=== PATIENT | male | born 1945 | race Caucasian/White ===

== ENCOUNTER 2016-09-08 21:46 | Emergency (ER) | payer MEDICARE ==
--- NOTE | 2016-09-08 22:48 | UC ---
Syncope/New Syncope HPI - HPI Summary HPI Summary: The patient comes in today for: 1. Near syncope: Onset: 3 hours ago. Palliative/provocative: He denies anything making his symptoms better or worse. Quality: near syncope Region: [place] Severity: No pain. Time: 2-3 minutes. Associated symptoms: Event: He was at home, and had fallen asleep on the cough. When he sat up, he burped "real hard" and acid and food came up into his throat, he felt imbalanced and like he was going to faint for about 2-3 minutes. AT that time, he got up and went to the bathroom. He has felt OK since. He has been burping "a lot." He has an acid taste in his mouth. He has had this problem before. Testing: He had a stress test (injection to make his heart speed up). Previous heart problems: None. CAD risk factors: HTN: (+), DM: (+), Prev dz: (-), smoker: (-), cholesterol: (?), FmHx (-). * - History Of Current Complaint Chief Complaint: UCGeneralIllness Stated Complaint: LIGHT-HEADED Time Seen by Provider: 09/08/16 21:57 Hx Obtained From: Patient - Allergies/Home Medications Allergies/Adverse Reactions: Allergies Allergy/AdvReac Type Severity Reaction Status Date / Time Tetracycline Allergy Severe Hives Verified 09/08/16 22:01 PMH/Surg Hx/FS Hx/Imm Hx Previously Healthy: No - Essential tremors Endocrine History Of: Reports: Diabetes Denies: Thyroid Disease, Hyperthyroidism, Hypothyroidism, Dyslipidemia Cardiovascular History Of: Reports: Hypertension Denies: Cardiac Disorders, Pacemaker/ICD, Myocardial Infarction, Congestive Heart Failure, Atrial Fibrillation, Deep Vein Thrombosis, Bleeding Disorders Respiratory History Of: Denies: COPD, Asthma, Pneumonia GI/ History Of: Reports: Gastroesophageal Reflux, Gall Bladder Disease - cholecystectomy Denies: Ulcer, Gastrointestinal Bleed, Kidney Stones, Diverticulitis, Renal Disease, Urosepsis Neurological History Of: Denies: TIA, CVA, Dementia, Seizures, Migraine Psychological History Of: Reports: Anxiety, Depression Denies: Bipolar Disorder, Schizophrenia, Post Traumatic Stress Disorder Cancer History Of: Denies: Lung Cancer, Colorectal Cancer, Breast Cancer, Prostate Cancer, Cervical Cancer Other History Of: Anticoagulant Therapy - 81 mg aspirin Negative For: HIV, Hepatitis B, Hepatitis C - Surgical History Surgical History: Yes Surgery Procedure, Year, and Place: CHOLECYSTECTOMY - Family History Known Family History: Positive: None, Hypertension, Other - father bladder [place] Negative: Cardiac Disease - Social History Occupation: Employed Full-time Alcohol Use: None Substance Use Type: None Smoking Status (MU): Former Smoker - Immunization History Most Recent Tetanus Shot: >10 yrs Review of Systems Constitutional: Negative Skin: Negative Eyes: Negative ENT: Negative Respiratory: Negative, Cough Cardiovascular: Negative Gastrointestinal: Negative Genitourinary: Negative All Other Systems Reviewed And Are Negative: Yes Physical Exam Triage Information Reviewed: Yes Appearance: Well-Appearing, No Pain Distress, Well-Nourished Vital Signs: Initial Vital Signs Temp 98.4 F 09/08/16 21:52 Pulse 69 09/08/16 21:52 Resp 18 09/08/16 21:52 BP 135/70 09/08/16 21:52 Pulse Ox 97 09/08/16 21:52 Vital Signs Reviewed: Yes Eyes: Positive: Conjunctiva Clear. Negative: Discharge ENT: Positive: Hearing grossly normal. Negative: Pharyngeal erythema, Nasal congestion, Nasal drainage, TM bulging, TM dull, TM red, Tonsillar swelling, Tonsillar exudate Dental: Negative: Gross Decay/Caries @, Dental Fracture @ Neck: Positive: Supple, Nontender, No Lymphadenopathy, Other: - No bruits. Negative: Nuchal Rigidity Respiratory: Positive: Chest non-tender, Lungs clear, No respiratory distress, No accessory muscle use. Negative: Crackles, Wheezing Cardiovascular: Positive: RRR, No Murmur Abdomen Description: Positive: Nontender, No Organomegaly, Soft. Negative: Distended, Guarding Musculoskeletal: Positive: Strength Intact, ROM Intact Neurological: Positive: Alert, Muscle Tone Normal Psychological: Positive: Age Appropriate Behavior, Consolable Skin: Negative: rashes, breakdown Diagnostics - Laboratory Diagnostic Studies Completed/Ordered: EKG: Rate: 68. Rhythm: Sinus. Ectopy: (-). Acute changes: (-) Syncope Course/Dx - Course Course Of Treatment: The patient was told that I am not able to diagnosed the exact cause of his near syncopal episode. He was told it may be from a benign problem (vaso-vagal) or from something more life-threatening (dysrhymia from CAD , or TIA). He was encouraged to go to the ER, but he wanted to have this addressed outpatient. He was told to follow up with his primary care provider for his difficult to control GERD. - Differential Dx/Diagnosis Differential Diagnosis/HQI/PQRI: Dysrhythmia, Vasovagal Episode, Other - TIA Provider Diagnoses: Near syncope, etiology undetermined. Discharge - Discharge Plan Condition: Stable Disposition: AGAINST MEDICAL ADVICE Patient Education Materials: Near Syncope (ED) Referrals: Tolu Hampton MD [Primary Care Provider] - As Soon As Possible (If you are not going to the ER as recommended, please call your doctors office to be seen as soon as you can for re-evaluation. If you get worse, please be seen in the ER.)
[2016-09-08 23:10] VITALS: BP 117/60
== END 2016-09-08 23:10 | disposition left against medical advice (07) ==
LOC: UCEAST 21:46
DX: E11.9 Type 2 diabetes mellitus without complications (principal); R55 Syncope and collapse; I10 Essential (primary) hypertension; K21.9 Gastro-esophageal reflux disease without esophagitis; F41.9 Anxiety disorder, unspecified; F32.9 Major depressive disorder, single episode, unspecified; Z90.49 Acquired absence of other specified parts of digestive tract; Z87.891 Personal history of nicotine dependence; Z88.3 Allergy status to other anti-infective agents
CPT/HCPCS: 93005; 99212; G0463

== ENCOUNTER → 2016-09-19 13:53 | Emergency (ER) | payer MEDICARE | END | disposition left against medical advice (07) | LOC: UCEAST 13:53 | DX: R05 Cough (principal); Z53.21 Procedure and treatment not carried out due to patient leaving prior to being seen by health care provider ==

== ENCOUNTER 2016-09-19 16:01 | Emergency (ER) | payer MEDICARE ==
[2016-09-19 16:39] VITALS: BP 122/55
--- NOTE | 2016-09-19 16:52 | UC ---
Throat Pain/Nasal Mickey HPI - HPI Summary HPI Summary: complaint of cough and nasal congestion for over a week productive cough with yellowish green sputum headache and increasing sinus pressure bilateral ear pain denies fever and chills cough is worse at night not taking any medications for symptoms - History of Current Complaint Chief Complaint: UCRespiratory Stated Complaint: COUGH Time Seen by Provider: 09/19/16 16:46 Hx Obtained From: Patient - Allergies/Home Medications Allergies/Adverse Reactions: Allergies Allergy/AdvReac Type Severity Reaction Status Date / Time Tetracycline Allergy Severe Hives Verified 09/19/16 16:39 Home Medications: Home Medications Lisinopril [Lisinopril 2.5 MG-] 2.5 mg PO DAILY 09/19/16 [History Confirmed ] buPROPion SR TAB* [Wellbutrin SR TAB*] 100 mg PO 09/19/16 [History] PMH/Surg Hx/FS Hx/Imm Hx Previously Healthy: Yes Endocrine History Of: Reports: Diabetes Denies: Thyroid Disease, Hyperthyroidism, Hypothyroidism, Dyslipidemia Cardiovascular History Of: Reports: Hypertension Denies: Cardiac Disorders, Pacemaker/ICD, Myocardial Infarction, Congestive Heart Failure, Atrial Fibrillation, Deep Vein Thrombosis, Bleeding Disorders Respiratory History Of: Denies: COPD, Asthma, Pneumonia GI/ History Of: Reports: Gastroesophageal Reflux, Gall Bladder Disease - cholecystectomy Denies: Ulcer, Gastrointestinal Bleed, Kidney Stones, Diverticulitis, Renal Disease, Urosepsis Neurological History Of: Denies: TIA, CVA, Dementia, Seizures, Migraine Psychological History Of: Reports: Anxiety, Depression Denies: Bipolar Disorder, Schizophrenia, Post Traumatic Stress Disorder Cancer History Of: Denies: Lung Cancer, Colorectal Cancer, Breast Cancer, Prostate Cancer, Cervical Cancer Other History Of: Anticoagulant Therapy - 81 mg aspirin Negative For: HIV, Hepatitis B, Hepatitis C - Surgical History Surgical History: Yes Surgery Procedure, Year, and Place: CHOLECYSTECTOMY - Family History Known Family History: Positive: None, Hypertension, Other - father bladder [place] Negative: Cardiac Disease - Social History Occupation: Disabled Lives: With Family Alcohol Use: None Substance Use Type: None Smoking Status (MU): Former Smoker - Immunization History Most Recent Tetanus Shot: >10 yrs Review of Systems Constitutional: Negative Skin: Negative Eyes: Negative ENT: Nasal Discharge Respiratory: Cough Cardiovascular: Negative Gastrointestinal: Negative Genitourinary: Negative Motor: Negative Neurovascular: Negative Musculoskeletal: Negative Neurological: Negative Psychological: Negative All Other Systems Reviewed And Are Negative: Yes Physical Exam Triage Information Reviewed: Yes Appearance: No Pain Distress, Well-Nourished Vital Signs: Initial Vital Signs Temp 98.5 F 09/19/16 16:35 Pulse 65 09/19/16 16:35 Resp 20 09/19/16 16:35 BP 122/55 09/19/16 16:35 Pulse Ox 97 09/19/16 16:35 Vital Signs Reviewed: Yes Eyes: Positive: Conjunctiva Clear ENT: Positive: Pharyngeal erythema, Nasal congestion, Nasal drainage, TM bulging , Other: - frontal and maxillary sinus tenderness. Negative: TM red Neck: Positive: No Lymphadenopathy Respiratory: Positive: Lungs clear, Normal breath sounds, No respiratory distress, No accessory muscle use Cardiovascular: Positive: RRR, No Murmur, Pulses Normal Abdomen Description: Positive: Nontender, Soft Bowel Sounds: Positive: Present Musculoskeletal: Positive: No Edema Neurological: Positive: Alert Psychological Exam: Normal Skin Exam: Normal Throat Pain/Nasal Course/Dx - Differential Dx/Diagnosis Differential Diagnosis/HQI/PQRI: Sinusitis, Tonsillitis, URI Provider Diagnoses: sinusitis/ bronchitis Discharge - Discharge Plan Condition: Stable Disposition: HOME Prescriptions: Amoxicillin/Clavulanate TAB* [Augmentin TAB 875*] 875 mg PO BID #20 tab Benzonatate CAP* [Tessalon 100 MG CAP*] 100 mg PO TID #30 cap Patient Education Materials: Sinusitis (ED), Acute Bronchitis (ED) Forms: *Work Release Referrals: Tolu Hampton MD [Primary Care Provider] - Additional Instructions: Please take antibiotic as directed Increase fluids and rest Take acetaminophen or ibuprofen for fever or pain Please review your discharge instructions. If your symptoms do not improve please call your primary care provider or return to urgent care
== END 2016-09-19 17:02 | disposition home or self-care (01) ==
LOC: UCEAST 16:01
DX: J32.9 Chronic sinusitis, unspecified (principal); J40 Bronchitis, not specified as acute or chronic; Z88.1 Allergy status to other antibiotic agents; E11.9 Type 2 diabetes mellitus without complications; I10 Essential (primary) hypertension; K21.9 Gastro-esophageal reflux disease without esophagitis; F41.8 Other specified anxiety disorders; Z79.82 Long term (current) use of aspirin; Z90.49 Acquired absence of other specified parts of digestive tract; Z87.891 Personal history of nicotine dependence
CPT/HCPCS: 99212; G0463

== ENCOUNTER 2016-11-30 14:12 | Emergency (ER) | payer MEDICARE ==
[2016-11-30 14:26] VITALS: BP 133/72
--- NOTE | 2016-11-30 15:25 | UC ---
Back Pain HPI - HPI Summary HPI Summary: Mid-low back pain since standing up from couch 11/29/16. 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 Denies fever, weakness, sensory disturbance, weight loss, or trouble with bowel or bladder. Denies hx of AAA. - History of Current Complaint Chief Complaint: UCBackPain Stated Complaint: BACK PAIN Time Seen by Provider: 11/30/16 15:03 Hx Obtained From: Patient Onset/Duration: Sudden Onset Timing: Constant Severity Initially: Moderate Severity Currently: Moderate Character: Dull, Aching, Spasmodic, Stiffness Aggravating: Movement, Bending, Walking Alleviating: Rest, Position Associated Signs And Symptoms: Negative: Redness, Bruising, Fever, Weakness, Numbness, Flank Pain, Bladder Incontinence, Bowel Incontinence, Weight Loss - Risk Factors AAA Risk Factors: Smoking, Hypertension TAD Risk Factors: Negative Cauda Equina Risk Factors: Negative - Allergies/Home Medications Allergies/Adverse Reactions: Allergies Allergy/AdvReac Type Severity Reaction Status Date / Time Tetracycline Allergy Severe Hives Verified 09/19/16 16:39 PMH/Surg Hx/FS Hx/Imm Hx Endocrine History: Diabetes Cardiovascular History: Hypertension Psychological History: Anxiety, Depression Other History Of: Anticoagulant Therapy - 81 mg aspirin Negative For: HIV, Hepatitis B, Hepatitis C - Surgical History Surgical History: Yes Surgery Procedure, Year, and Place: CHOLECYSTECTOMY - Family History Known Family History: Positive: None, Hypertension, Other - father bladder [place] Negative: Cardiac Disease - Social History Occupation: Employed Full-time Alcohol Use: None Substance Use Type: None Smoking Status (MU): Former Smoker - Immunization History Most Recent Tetanus Shot: >10 yrs Review of Systems Constitutional: Negative Skin: Negative Eyes: Negative ENT: Negative Respiratory: Negative Cardiovascular: Negative Gastrointestinal: Negative Genitourinary: Negative Motor: Negative Neurovascular: Negative Musculoskeletal: Myalgia - low back Neurological: Negative Psychological: Negative All Other Systems Reviewed And Are Negative: Yes Physical Exam Triage Information Reviewed: Yes Appearance: Well-Appearing, Well-Nourished, Pain Distress - with movement Vital Signs: Initial Vital Signs Temp 97.3 F 11/30/16 14:22 Pulse 67 11/30/16 14:22 Resp 17 11/30/16 14:22 BP 133/72 11/30/16 14:22 Pulse Ox 96 11/30/16 14:22 Vital Signs Reviewed: Yes Eye Exam: Normal Eyes: Positive: Conjunctiva Clear ENT Exam: Normal ENT: Positive: Normal ENT inspection, Hearing grossly normal, Pharynx normal, TMs normal Dental Exam: Other - missing many teeth Neck exam: Normal Respiratory Exam: Normal Respiratory: Positive: Chest non-tender, Lungs clear, Normal breath sounds, No respiratory distress, No accessory muscle use Cardiovascular: Positive: RRR, No Murmur Abdomen Description: Positive: Nontender, No Organomegaly. Negative: CVA Tenderness (R), CVA Tenderness (L) Musculoskeletal: Positive: Strength Intact, ROM Intact, ROM Limited @ - back only Neurological Exam: Normal, Other - DTRs 2+ BLE Neurological: Positive: Alert Psychological Exam: Normal Skin Exam: Normal Back Pain Course/Dx - Differential Dx/Diagnosis Provider Diagnoses: Low back strain Discharge - Discharge Plan Condition: Stable Disposition: HOME Prescriptions: Cyclobenzaprine HCl [Flexeril 5 mg (NF)] 5 mg PO TID PRN #10 tab PRN Reason: Pain Naproxen Sodium [Naproxen Sodium 500 MG TAB] 500 mg PO BID PRN #20 tab PRN Reason: Pain Patient Education Materials: Low Back Strain (ED) Forms: *Work Release Referrals: Tolu Hampton MD [Primary Care Provider] - 1 Week Additional Instructions: Go to the emergency department if you have fever, weakness in the legs, incontinence, or severe pain.
== END 2016-11-30 15:20 | disposition home or self-care (01) ==
LOC: UCEAST 14:12
DX: S39.012A Strain of muscle, fascia and tendon of lower back, initial encounter (principal); X58.XXXA Exposure to other specified factors, initial encounter; Z87.891 Personal history of nicotine dependence
CPT/HCPCS: 99212; G0463

== ENCOUNTER 2017-02-02 10:38 | Day surgery (SDC) | payer MEDICARE ==
[~2017-02-02 10:38] MED LIST: Acetaminophen TAB* 325 MG PO PRN; Buffered Lidocaine 0.9% SYRIN* 5 ML/SYR SYRINGE INTRADERM ONE
[2017-02-02] MEDS ORDERED: Proparacaine 0.5% OPHTH.SOL* 15 ML BTL ONE (10:54)
[2017-02-02] MEDS ORDERED: Neomycin/Polymy/Dex OPTH.SUSP* MAXITROL 0.1% 5 ML ONE (10:54)
[2017-02-02] MEDS ORDERED: Cyclopentolate 1% OPTH.SOL* 2 ML BTL ONE (10:54)
[2017-02-02] MEDS ORDERED: Flurbiprofen 0.03% OPTH.SOL* 2.5 ML BTL ONE (10:54)
[2017-02-02] MEDS ORDERED: Povidone Iodine 5% OPTH* 30 ML BTL ONE (10:54)
[2017-02-02] MEDS ORDERED: Buffered Lidocaine 0.9% SYRIN* 5 ML/SYR SYRINGE ONE (10:54)
[2017-02-02] MEDS ORDERED: Phenylephrine 2.5% OPTH.SOL* 2 ML BTL ONE (10:54)
[2017-02-02] MEDS ORDERED: acetaZOLAMIDE TAB* 250 MG ONE (10:54)
[2017-02-02] MEDS ORDERED: Lidocaine 2% EPI 1:200000 MPF* 20 ML VIAL ONE (10:54)
[2017-02-02] MEDS ORDERED: Lidocaine 1% MPF* 2 ML VIAL ONE (10:54)
[2017-02-02] MEDS ORDERED: fentaNYL* 50 MCG/ML 2 ML VIAL (100 MCG VIAL) ONE (12:25)
[2017-02-02] MEDS ORDERED: Midazolam* 1 MG/ML 2 ML VIAL (2 MG) ONE (12:26)
[2017-02-02 13:20] VITALS: BP 128/72
--- NOTE | 2017-02-02 14:38 | OP ---
DATE OF OPERATION: 02/02/2017 - [facility] DATE OF : 1945. SURGEON: Rodney Vargas M.D. PREOPERATIVE DIAGNOSIS: Cataract right eye. POSTOPERATIVE DIAGNOSIS: Cataract right eye. OPERATIVE PROCEDURE: Phacoemulsification right eye with IOL. DESCRIPTION OF PROCEDURE: The patient was brought to the operating room after being given 1/2% Alcaine with epinephrine drops in the preoperative area. The eye was prepped and draped in the usual sterile fashion. Sterile drape and eyelid speculum were placed. Again, topical 1/2% Alcaine with epinephrine was given. A paracentesis incision was made at the 9 o'clock position with the No.75 blade. Clear cornea incision 2.2 x 2.2-mm was created at the 12 o'clock position starting at the anterior limbus using the 2.2-mm keratome. The anterior chamber was irrigated with 0.4 mL of 1% non-preservative intracameral lidocaine and filled with DisCoVisc. A capsulorrhexis was completed using the cystotome and the Utrata forceps. Hydrodissection was performed with balanced salt solution. The lens nucleus was removed with the Phacoemulsification handpiece without incident. Cortex was removed with the irrigation-aspiration handpiece. The capsular bag was re-inflated using DisCoVisc and an [id number] implant was inserted with the shooter. The irrigation-aspiration handpiece was used to remove all residual DisCoVisc. The eye was refilled with balanced salt solution and the wound checked and found to be watertight. Topical Maxitrol drops were given. [id number]/[facility] #: [id number] [facility]ITALE[facility]ie
== END 2017-02-02 13:34 | disposition home or self-care (01) ==
LOC: OREAST 10:38
PROVIDERS: ATTEND Specialist
DX: H26.9 Unspecified cataract (principal); Z79.82 Long term (current) use of aspirin; Z88.2 Allergy status to sulfonamides; Z88.8 Allergy status to other drugs, medicaments and biological substances; E11.9 Type 2 diabetes mellitus without complications; K21.9 Gastro-esophageal reflux disease without esophagitis; I10 Essential (primary) hypertension; E78.00 Pure hypercholesterolemia, unspecified
CPT/HCPCS: A9270-GY; J2250; J3010; V2632

== ENCOUNTER 2017-04-11 16:36 | Emergency (ER) | payer MEDICARE ==
[2017-04-11 16:50] VITALS: BP 148/77
[2017-04-11] MEDS ORDERED: Tetan/Diph/Pertus SYR(Tdap)* 0.5 ML SYR(BOOSTRIX) use SYR IM ONE (16:59)
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
== END 2017-04-11 17:40 | disposition home or self-care (01) ==
LOC: UCEAST 16:36
DX: S61.231A Puncture wound without foreign body of left index finger without damage to nail, initial encounter (principal); L03.012 Cellulitis of left finger; W26.0XXA Contact with knife, initial encounter; Y93.89 Activity, other specified; Y92.9 Unspecified place or not applicable; Y99.9 Unspecified external cause status; Z72.0 Tobacco use
CPT/HCPCS: 73140; 90471; 90715; 99212; G0463

== ENCOUNTER 2017-05-02 18:37 | Emergency (ER) | payer MEDICARE ==
[2017-05-02 19:37] VITALS: BP 145/59
--- NOTE | 2017-05-02 20:26 | RAD ---
HISTORY: Right hand pain, trauma COMPARISONS: None VIEWS: 2, Frontal and lateral views of the right hand FINDINGS: BONE DENSITY: There is diffuse osteopenia. BONES: There is no displaced fracture. JOINTS: There is advanced osteoarthritis of the first CMC joint and of the interphalangeal joints. ALIGNMENT: There is no dislocation. SOFT TISSUES: Unremarkable. OTHER FINDINGS: None. IMPRESSION: OSTEOARTHRITIS. NO ACUTE OSSEOUS INJURY. IF SYMPTOMS PERSIST, RECOMMEND REPEAT IMAGING.
--- NOTE | 2017-05-02 20:27 | RAD ---
HISTORY: Pain, trauma, right wrist COMPARISONS: None VIEWS: 3, Frontal, lateral, and oblique views of the right wrist FINDINGS: BONE DENSITY: There is diffuse osteopenia. BONES: There is a small bone fragment along the dorsal aspect of the proximal carpal row. JOINTS: There is osteoarthritis of the first CMC joint ALIGNMENT: There is no dislocation. SOFT TISSUES: Unremarkable. OTHER FINDINGS: None. IMPRESSION: 1. SMALL BONE FRAGMENT ALONG THE DORSAL ASPECT OF THE PROXIMAL CARPAL ROW SUGGESTIVE OF AN AVULSION INJURY, LIKELY FROM THE TRIQUETRUM. 2. OSTEOARTHRITIS.
--- NOTE | 2017-05-02 21:01 | UC ---
Franklin Campbell Gabriel, scribed for Danie Dillon MD on 05/02/17 at 2034 . Upper Extremity HPI - History of Current Complaint Chief Complaint: UCUpperExtremity Stated Complaint: FALL INJURY - HAND Time Seen by Provider: 05/02/17 20:20 Hx Obtained From: Patient Onset/Duration: Still Present Severity Initially: Moderate Severity Currently: Moderate Pain Intensity: 8 Pain Scale Used: 0-10 Numeric Aggravating Factor(s): Movement - Allergies/Home Medications Allergies/Adverse Reactions: Allergies Allergy/AdvReac Type Severity Reaction Status Date / Time Tetracycline Allergy Severe Hives Verified 05/02/17 19:37 PMH/Surg Hx/FS Hx/Imm Hx Previously Healthy: No Endocrine History: Diabetes Cardiovascular History: Hypertension Other History Of: Anticoagulant Therapy - 81 mg aspirin Negative For: HIV, Hepatitis B, Hepatitis C - Surgical History Surgical History: Yes Surgery Procedure, Year, and Place: LAPARSCOPIC CHOLECYSTECTOMY 2011 [facility] [place] - Family History Known Family History: Positive: Hypertension, Other - father bladder [place] Negative: Cardiac Disease - Social History Occupation: Employed Full-time Lives: With Family Alcohol Use: Rare Alcohol Amount: BEER 5 PER YR Substance Use Type: None Smoking Status (MU): Former Smoker When Did the Patient Quit Smoking/Using Tobacco: - Immunization History Most Recent Tetanus Shot: >10 yrs Review of Systems Constitutional: Negative - fever Musculoskeletal: Other: - right wrist pain All Other Systems Reviewed And Are Negative: Yes Physical Exam Triage Information Reviewed: Yes Appearance: Well-Appearing, No Pain Distress Vital Signs: Initial Vital Signs Temp 97.8 F 05/02/17 19:33 Pulse 77 05/02/17 19:33 Resp 16 05/02/17 19:33 BP 145/59 05/02/17 19:33 Pulse Ox 99 05/02/17 19:33 Vital Signs Reviewed: Yes Eyes: Positive: Conjunctiva Clear ENT: Positive: Normal ENT inspection Neck: Positive: Supple, Nontender Respiratory: Positive: Chest non-tender, Lungs clear, Normal breath sounds Cardiovascular: Positive: RRR, Pulses Normal Abdomen Description: Positive: Nontender Musculoskeletal: Positive: Other: - tender right medial wrist over carpal bones with STS. Neuro vascular intact. no break in skin. Neurological: Positive: Alert Skin Exam: Normal Procedures - Splinting Location: right wrist forearm Hand-Made Type: orthoglass Splint: volar Pre-Proc Neuro Vasc Exam: normal Post-Proc Neuro Vasc Exam: normal Diagnostics - Radiology hand Xray Radiology Interpretation Completed By: Radiologist - OSTEOARTHRITIS. NO ACUTE OSSEOUS INJURY. IF SYMPTOMS PERSIST, RECOMMEND REPEAT IMAGING. ED physician has reviewed this radiology. wrist Xray Radiology Interpretation Completed By: Radiologist - 1. SMALL BONE FRAGMENT ALONG THE DORSAL ASPECT OF THE PROXIMAL CARPAL ROW SUGGESTIVE OF AN AVULSION INJURY, LIKELY FROM THE TRIQUETRUM. 2. OSTEOARTHRITIS. ED physician has reviewed this radiology. Upper Extremity Course/Dx - Course Course Of Treatment: 71 yr old with triquatral fracture. volar splint applied by md. FU ortho. - Differential Dx/Diagnosis Provider Diagnoses: triquatrial fracture of right wrist avulsion fracture. hypertension Discharge - Discharge Plan Condition: Good Disposition: HOME Patient Education Materials: Wrist Fracture in Adults (ED), Hypertension (ED) Referrals: No Primary Care Phys,NOPCP [Primary Care Provider] - Tyrone Gray MD [Medical Doctor] - The documentation as recorded by the Franklin montes Gabriel accurately reflects the service I personally performed and the decisions made by Santana alston Walter, MD.
== END 2017-05-02 21:05 | disposition home or self-care (01) ==
LOC: UCEAST 18:37
DX: S62.111A Displaced fracture of triquetrum [cuneiform] bone, right wrist, initial encounter for closed fracture (principal); I10 Essential (primary) hypertension; M19.031 Primary osteoarthritis, right wrist; M19.041 Primary osteoarthritis, right hand; W19.XXXA Unspecified fall, initial encounter; Y92.9 Unspecified place or not applicable; E11.9 Type 2 diabetes mellitus without complications; Z79.82 Long term (current) use of aspirin; Z88.1 Allergy status to other antibiotic agents; Z87.891 Personal history of nicotine dependence
CPT/HCPCS: 25600; 99212; 99213; G0463

== ENCOUNTER 2017-08-21 21:59 | Emergency (ER) | payer MEDICARE ==
[2017-08-21 22:58] LABS: Hematocrit 42 % (42-52); Hemoglobin 14.6 g/dl (14.0-18.0); Mean Corpuscular HGB Conc 35 g/dl (31-36); Mean Corpuscular Hemoglobin 30 pg (27-31); Mean Corpuscular Volume 86 fL (80-94); Mean Platelet Volume 6.4 um3 (7.4-10.4); Platelet Count 321 10^3/ul (150-450); Red Blood Count 4.89 10^6/ul (4.0-5.4); Red Cell Distribution Width 14 % (10.5-15); White Blood Count 11.3 10^3/ul (3.5-10.8)
[2017-08-21 23:05] LABS: ABS Basophils 0.1 10^3/ul (0-0.2); ABS Eosinophils 0.2 10^3/ul (0-0.6); ABS Lymphocytes 1.9 10^3/ul (1.0-4.8); ABS Monocytes 1.6 10^3/ul (0-0.8); ABS Neutrophils 7.5 10^3/ul (1.5-7.7); ABS Nucleated RBC 0 10^3/ul; Eosinophil % 1.6 % (0-6); Lymphocyte % 17.1 % (25-47); Nucleated Red Blood Cells % 0.1
[2017-08-21 23:08] LABS: INR 0.89 (0.77-1.02)
[2017-08-21 23:13] LABS: EGFR Non-African American 101.4 (>60)
[2017-08-22 00:03] VITALS: BP 134/64
--- NOTE | 2017-08-22 00:15 | ED ---
Dalton Campbell Julia, scribed for Apolinar Davis MD on 08/21/17 at 2216 . Upper Extremity Pain - HPI Summary HPI Summary: This patient is a 71 year old M presenting to [facility] with a chief complaint of intermittent left shoulder pain lasting 15-20 minutes described as squeezing since 17:00. The patient rates the pain 5/10 in severity. Patient denies neck pain and SOB. Pt denies previous similar symptoms. Pain is unchanged by shoulder movement. Pt has hx of CAD. Pt takes baby ASA daily. - History of Current Complaint Chief Complaint: EDShoulderClavicleInj Stated Complaint: LEFT SHOULDER PAIN Time Seen by Provider: 08/21/17 22:08 Hx Obtained From: Patient Mechanism Of Injury: Unknown Onset/Duration: Started Hours Ago Timing: Intermittent, Lasting Minutes Pain Location: Shoulder - left Character: Unable to Describe - "squeezing" Aggravating Factor(s): Nothing Alleviating Factor(s): Nothing Associated Signs & Symptoms: Negative: SOB, Other - neck pain - Allergies/Home Medications Allergies/Adverse Reactions: Allergies Allergy/AdvReac Type Severity Reaction Status Date / Time tetracycline Allergy Hives Verified 08/21/17 22:06 PMH/Surg Hx/FS Hx/Imm Hx Endocrine/Hematology History: Reports: Hx Anticoagulant Therapy - 81 mg aspirin , Hx Diabetes - TYPE II, Hx Anemia - LOW DOSE ASPIRIN Denies: Hx Thyroid Disease Cardiovascular History: Reports: Hx Angina, Hx Coronary Artery Disease - ?, Hx Hypertension Denies: Hx Aneurysm, Hx Auto Implanted Cardiovert Defib, Hx Cardiac Arrest, Hx Congestive Heart Failure, Hx Deep Vein Thrombosis, Hx Hypercholesterolemia, Hx Myocardial Infarction, Hx Pacemaker/ICD, Hx Rheumatic Fever, Hx Syncope Respiratory History: Reports: Hx Sleep Apnea - does not use CPAP/ refused Denies: Hx Asthma, Hx Chronic Bronchitis, Hx Chronic Obstructive Pulmonary Disease (COPD), Hx Lung Cancer, Hx Pneumonia, Hx Seasonal Allergies GI History: Reports: Hx Gall Bladder Disease - cholecystectomy, Hx Gastroesophageal Reflux Disease - ON MEDS PT STATES CONT TO HAVE SEVERE EPISODES , Hx Hiatal Hernia, Other GI Disorders - DIARRHEA OFTEN Denies: Hx Crohn's Disease, Hx Diverticulosis, Hx Gastrointestinal Bleed, Hx Irritable Bowel, Hx Ulcer, Hx Urosepsis History: Denies: Hx Kidney Infection, Hx Kidney Stones, Hx Renal Disease Musculoskeletal History: Reports: Hx Arthritis - BILAT KNEES AND SHOULDERS Denies: Hx Back Problems, Hx Gout, Hx Orthopedic Injury, Hx Osteoporosis, Hx Tendonitis Sensory History: Reports: Hx Cataracts - BILAT, Hx Contacts or Glasses - GLASSES Denies: Hx Hearing Aid Opthamlomology History: Reports: Hx Cataracts - BILAT, Hx Contacts or Glasses - GLASSES Neurological History: Reports: Other Neuro Impairments/Disorders - CURRENT COMPLAINT IS OF NUMBNESS ON RIGHT SIDE OF HEAD Denies: Hx Dementia, Hx Headaches, Hx Migraine, Hx Nerve Disease, Hx Seizures , Hx Spinal Cord Injury, Hx Transient Ischemic Attacks (TIA) Psychiatric History: Reports: Hx Anxiety, Hx Depression, Hx Panic Disorder Denies: Hx Eating Disorder, Hx Inpatient Treatment, Hx Schizophrenia, Hx Bipolar Disorder, Hx Suicide Attempt, Hx of Violent Episodes Against Others, Hx Substance Abuse - Surgical History Surgery Procedure, Year, and Place: LAPARSCOPIC CHOLECYSTECTOMY 2012 [facility] Hx Anesthesia Reactions: No Infectious Disease History: No Infectious Disease History: Denies: Hx Clostridium Difficile, Hx Hepatitis, Hx Human Immunodeficiency Virus (HIV), Hx of Known/Suspected MRSA, Hx Shingles, Hx Tuberculosis, Hx Known/ Suspected VRE, Hx Known/Suspected VRSA, History Other Infectious Disease, Traveled Outside the [place] in Last 30 Days - Family History Known Family History: Positive: Hypertension, Other - father bladder [place] Negative: Cardiac Disease - Social History Alcohol Use: Rare Alcohol Amount: BEER 5 PER YR Substance Use Type: Reports: None Hx Tobacco Use: Yes - FOR 30 YRS Smoking Status (MU): Former Smoker Review of Systems Negative: Shortness Of Breath Musculoskeletal: Negative - neck pain Positive: Myalgia - shoulder pain All Other Systems Reviewed And Are Negative: Yes Physical Exam - Summary Physical Exam Summary: VITAL SIGNS: Reviewed. GENERAL: Patient is a well-developed and nourished male who is lying comfortable in the stretcher. Patient is not in any acute respiratory distress. HEAD AND FACE: No signs of trauma. No ecchymosis, hematomas or skull depressions. No sinus tenderness. EYES: PERRLA, EOMI x 2, No injected conjunctiva, no nystagmus. EARS: Hearing grossly intact. Ear canals and tympanic membranes are within normal limits. MOUTH: Oropharynx within normal limits. NECK: Supple, trachea is midline, no adenopathy, no JVD, no carotid bruit, no c- spine tenderness, neck with full ROM. CHEST: Symmetric, no tenderness at palpation LUNGS: Clear to auscultation bilaterally. No wheezing or crackles. CVS: Regular rate and rhythm, S1 and S2 present, no murmurs or gallops appreciated. ABDOMEN: Soft, non-tender. No signs of distention. No rebound no guarding, and no masses palpated. Bowel sounds are normal. EXTREMITIES: FROM in all major joints, no edema, no cyanosis or clubbing. NEURO: Alert and oriented x 3. No acute neurological deficits. Speech is normal and follows commands. SKIN: Dry and warm Triage Information Reviewed: Yes Vital Signs On Initial Exam: Initial Vitals Temp Pulse Resp BP Pulse Ox 98 F 77 20 151/74 97 08/21/17 22:02 08/21/17 22:02 08/21/17 22:02 08/21/17 22:02 08/21/17 22:02 Vital Signs Reviewed: Yes Diagnostics - Vital Signs Vital Signs Temp Pulse Resp BP Pulse Ox 08/21/17 22:02 98 F 77 20 151/74 97 - Laboratory Result Diagrams: 08/21/17 22:50 08/21/17 22:50 Lab Statement: Any lab studies that have been ordered have been reviewed, and results considered in the medical decision making process. - Radiology CXR Radiology Interpretation Completed By: ED Physician - No acute processes. Awaiting offical report. - EKG 2223 Cardiac Rate: NL - at 68 BPM EKG Rhythm: Sinus Rhythm ST Segment: Non-Specific - in inferior leads Re-Evaluation - Re-Evaluation 1 Re-Evaluation Time: 23:50 Change: Improved - Pt feels better. Pt informed of results. Pt instructed to follow up with PCP and have a stress test VIMAL. Course/Dx - Course Course Of Treatment: Pt presents with intermittent left shoulder pain lasting 15 -20 minutes described as squeezing since 17:00. Pain is unchanged by shoulder movement. And EKG and CXR are of no acute concern. Lab results are unremarkable. Pt is feeling better while in ED. A stress test w was highly recommended on an outpatient basis as soon as possible. Pt will be discharged. - Diagnoses Provider Diagnoses: Left shoulder pain Discharge - Sign-Out/Discharge Documenting (check all that apply): Discharge - Discharge Plan Condition: Stable Disposition: HOME Patient Education Materials: Shoulder Pain (ED) Referrals: [facility] [place] PHYSICIAN REFERRAL [Outside] - As Soon As Possible (Follow up with a primary care physician as soon as possible.) Additional Instructions: Schedule a stress test as soon as possible. RETURN TO THE EMERGENCY DEPARTMENT FOR CHANGING OR WORSENING SYMPTOMS. The documentation as recorded by the Dalton montes Julia accurately reflects the service I personally performed and the decisions made by me, Apolinar Davis MD.
--- NOTE | 2017-08-22 07:40 | RAD ---
INDICATION: Chest pain. COMPARISON: Comparison is made with a prior study from June 21, 2015. TECHNIQUE: A portable view of the chest was obtained. FINDINGS: Cardiac and mediastinal contours appear to be within normal limits. The lungs are clear. No pleural effusion is seen. IMPRESSION: NO EVIDENCE FOR ACUTE DISEASE.
== END 2017-08-22 00:01 | disposition home or self-care (01) ==
LOC: ED 21:59
DX: M25.512 Pain in left shoulder (principal); E11.9 Type 2 diabetes mellitus without complications; Z79.84 Long term (current) use of oral hypoglycemic drugs; Z79.82 Long term (current) use of aspirin; I25.119 Atherosclerotic heart disease of native coronary artery with unspecified angina pectoris; K21.9 Gastro-esophageal reflux disease without esophagitis; K44.9 Diaphragmatic hernia without obstruction or gangrene; F41.0 Panic disorder [episodic paroxysmal anxiety]; F32.9 Major depressive disorder, single episode, unspecified; Z88.1 Allergy status to other antibiotic agents; Z87.891 Personal history of nicotine dependence
CPT/HCPCS: 36415; 71045; 80053; 82550; 83735; 83880; 84484; 85025; 85610; 85730; 93005; 99282

== ENCOUNTER 2018-01-11 13:54 | Emergency (ER) | payer MEDICARE ==
--- NOTE | 2018-01-11 13:58 | UC ---
Cardiac HPI - HPI Summary HPI Summary: A 72 y/o M presents to [facility] [place] with c/o lower sternal CP onset this AM approx 30 minutes after breakfast. Pain is described as burning and stabbing and rated an 7/8 out of 10. Pain has reduced to 2/3 out of 10 at bedside. Associated: nausea. Denies SOB, diaphoresis, palpitations, dizziness. He had a bowl of cereal for breakfast. He states this pain feels worse than his typical GERD episodes. PMHx: GERD, HTN, DM, no prev MS. - History of Current Complaint Stated Complaint: CHEST PAIN Time Seen by Provider: 01/11/18 13:56 Hx Obtained From: Patient Onset/Duration: Lasting Hours, Still Present Initial Severity: Severe Current Severity: Moderate Pain Intensity: 8 - out of 10 at its worst Chest Pain Location: Lower Sternal Character: Burning, Sharp/Stabbing Associated Signs & Symptoms: Positive: Nausea/Vomiting. Negative: Dizziness, SOB, Diaphoresis, Palpitations - Allergy/Home Medications Allergies/Adverse Reactions: Allergies Allergy/AdvReac Type Severity Reaction Status Date / Time tetracycline Allergy Hives Verified 08/21/17 22:06 Home Medications: Home Medications Lisinopril/HCTZ 10/12.5(NF) [Zestoretic 10/12.5(NF)] 1 tab PO DAILY 01/11/18 [ History Confirmed 01/11/18] PMH/Surg Hx/FS Hx/Imm Hx Previously Healthy: No Endocrine History: Diabetes Cardiovascular History: Hypertension GI/ History: Gastroesophageal Reflux Other History Of: Anticoagulant Therapy - 81 mg aspirin Negative For: HIV, Hepatitis B, Hepatitis C - Surgical History Surgical History: Yes Surgery Procedure, Year, and Place: LAPARSCOPIC CHOLECYSTECTOMY [address] [facility] [place] - Family History Known Family History: Positive: Hypertension, Other - father bladder [place] Negative: Cardiac Disease Family History: neg: CAD - Social History Occupation: Retired Lives: With Family Alcohol Use: Rare Alcohol Amount: BEER 5 PER YR Substance Use Type: None Smoking Status (MU): Former Smoker When Did the Patient Quit Smoking/Using Tobacco: - Immunization History Most Recent Tetanus Shot: >10 yrs Review of Systems Constitutional: Negative - diaphoresis Respiratory: Negative - SOB Cardiovascular: Negative - palpitations, Chest Pain Gastrointestinal: Nausea Neurological: Negative - dizziness All Other Systems Reviewed And Are Negative: Yes Physical Exam - Summary Physical Exam Summary: VITAL SIGNS: Reviewed. GENERAL: Patient is a well-developed and obese MALE who is lying comfortable in the stretcher. Patient is not in any acute respiratory distress. HEAD AND FACE: Normocephalic EYES: PERRLA, EOMI x 2. EARS: Hearing grossly intact. MOUTH: Oropharynx within normal limits. NECK: Supple, trachea is midline, no adenopathy, no JVD, no carotid bruit. CHEST: Symmetric, no tenderness at palpation LUNGS: Clear to auscultation bilaterally. No wheezing or crackles. CVS: Regular rate and rhythm, S1 and S2 present, no murmurs or gallops appreciated. ABDOMEN: Soft, non-tender. Bowel sounds are normal. No abdominal abnormal pulsations. EXTREMITIES: Full ROM in all major joints, no edema, no cyanosis or clubbing. NEURO: Alert and oriented x 3. No acute neurological deficits. Speech is normal and follows commands. SKIN: Dry and warm Triage Information Reviewed: Yes Vital Signs Reviewed: Yes Diagnostics - EKG EKG Comments: EKG at 1354: No ST elevation, Q waves in aVF Cardiac Rate: NL - 67 bpm Cardiac Rhythm: Sinus: Normal - Assessment/Plan Course Of Treatment: The patient was found to have increased BP in UC. The patient will follow up with PCP for better control of BP. . This patient is a 72-year-old male who presents to the urgent care with a chief complaint of having epigastric pain with radiation to the chest. Patient reports that she he has history of GERD but is not similar as his usual girth exacerbation. EKG normal sinus rhythm without any ST elevations. Patient has past medical history significant for diabetes and hypertension therefore I believe that the patient would benefit of blood work to rule out acute coronary syndrome. Patient will be discharged to the emergency department since he refuses ambulance transport. Patient is hemodynamically stable alert and oriented 3. - Clinical Impression Provider Diagnoses: Epigastric pain /Chest pain Discharge - Sign-Out/Discharge Documenting (check all that apply): Patient Departure - to ED All imaging exams completed and their final reports reviewed: No Studies - Discharge Plan Condition: Stable Disposition: HOME Patient Education Materials: Chest Pain (DC), Epigastric Pain (ED) Referrals: Tolu Hampton MD [Primary Care Provider] - Additional Instructions: Patient will be discharged to the emergency department for further workup and management. Patient declined ambulance transfer. FOLLOW UP WITH YOUR PRIMARY CARE PROVIDER WITHIN ONE WEEK FOR HIGH BLOOD PRESSURE NOTED TODAY. - Billing Disposition and Condition Condition: STABLE Disposition: Home - Attestation Statements Document Initiated by Scribe: Yes Documenting Scribe: Shabbir Sevilla Provider For Whom Blakeibe is Documenting (Include Credential): Danie Membreno MD Scribe Attestation: Shabbir Campbell scribed for Danie Membreno MD on 01/11/18 at 1437. Scribe Documentation Reviewed: Yes Provider Attestation: The documentation as recorded by the Shabbir montes accurately reflects the service I personally performed and the decisions made by Danie alston MD
[2018-01-11 14:06] VITALS: BP 134/64
== END 2018-01-11 14:17 | disposition home or self-care (01) ==
LOC: UCEAST 13:54
DX: R07.89 Other chest pain (principal); R10.13 Epigastric pain; Z88.1 Allergy status to other antibiotic agents; E11.9 Type 2 diabetes mellitus without complications; I10 Essential (primary) hypertension; Z79.899 Other long term (current) drug therapy; Z87.891 Personal history of nicotine dependence
CPT/HCPCS: 93005; 99212; G0463

== ENCOUNTER 2018-01-11 14:48 | Emergency (ER) | payer MEDICARE ==
[2018-01-11] MEDS ORDERED: Famotidine TAB* 20 MG PO ONE (14:57)
[2018-01-11] MEDS ORDERED: Al Hydrox/Mg Hydrox/Simet LIQ* 30 ML UDC PO ONE (14:58)
[2018-01-11] MEDS ORDERED: Lidocaine 2% VISCOUS* 15 ML UDC PO ONE (14:58)
[2018-01-11] MEDS ORDERED: Omeprazole CAP* 20 MG PO ONE (14:58)
--- NOTE | 2018-01-11 15:06 | ED ---
Abdominal Pain/Male - HPI Summary HPI Summary: This patient is a 72 year old M presenting to ED with Hx of reflux and a hiatal hernia and a chief complaint of epigastric pain since 1000 this morning after eating a bowl of cereal. Went to a and then stopped by [facility] where they did an EKG that was normal. The patient rates the pain 2/10 in severity. Symptoms aggravated by nothing. Symptoms alleviated by rolaids ( alleviated the pain a little). Patient denies SOB, N/V, and melena. PMHx of knee replacement 3 weeks ago (took last shot 01/05/18). Took omeprazole today. - History of Current Complaint Chief Complaint: EDAbdPain Stated Complaint: ABDOMINAL PAIN Time Seen by Provider: 01/11/18 14:57 Hx Obtained From: Patient Onset/Duration: Sudden Onset, Lasting Hours - since 1000 this morning, Still Present Timing: Constant, Lasting Hours Severity Initially: Mild Severity Currently: Mild Pain Intensity: 2 Pain Scale Used: 0-10 Numeric Location: Epigastric Aggravating Factor(s): Nothing Alleviating Factor(s): Other: - rolaids (alleviated the pain a little) Associated Signs And Symptoms: Positive: Other - Patient denies SOB, N/V, and melena. - Allergies/Home Medications Allergies/Adverse Reactions: Allergies Allergy/AdvReac Type Severity Reaction Status Date / Time tetracycline Allergy Hives Verified 01/11/18 14:54 Home Medications: Home Medications Bupropion XL* [Wellbutrin XL *] 150 mg PO DAILY 01/11/18 [History Confirmed ] Ferrous Sulfate TAB* 325 mg PO BID 01/11/18 [History Confirmed 01/11/18] Lisinopril/HCTZ 20/25(NF) [Zestoretic 20/25(NF)] 1 tab PO DAILY 01/11/18 [ History Confirmed 01/11/18] Omeprazole CAP* [Prilosec CAP* 20 MG] 40 mg PO BID 01/11/18 [History Confirmed 01/11/18] Propranolol TAB* [Inderal TAB*] 80 mg PO DAILY 01/11/18 [History Confirmed 01/11] Rosuvastatin (NF) [Crestor (NF)] 10 mg PO QPM 01/11/18 [History Confirmed ] Sennosides/Docusate Sodium [Senna-S Tablet] 2 tab PO BID 01/11/18 [History Confirmed 01/11/18] amLODIPine TAB* [Norvasc 5 mg TAB*] 10 mg PO DAILY 01/11/18 [History Confirmed 01/11/18] busPIRone TAB* [Buspar TAB*] 10 mg PO BID 01/11/18 [History Confirmed 01/11/18] oxyCODONE/Acetamin 10/325(NF) [Percocet 10/325 (NF)] 1 tab PO Q4HR MDD 6 tabs [History Confirmed 01/11/18] traMADol TAB* [Ultram*] 50 mg PO Q4HR PRN MDD 300 mg 01/11/18 [History Confirmed 01/11/18] PMH/Surg Hx/FS Hx/Imm Hx Endocrine/Hematology History: Reports: Hx Anticoagulant Therapy - 81 mg aspirin , Hx Diabetes - TYPE II, Hx Anemia - LOW DOSE ASPIRIN Denies: Hx Thyroid Disease Cardiovascular History: Reports: Hx Angina, Hx Coronary Artery Disease - ?, Hx Hypertension Denies: Hx Aneurysm, Hx Auto Implanted Cardiovert Defib, Hx Cardiac Arrest, Hx Congestive Heart Failure, Hx Deep Vein Thrombosis, Hx Hypercholesterolemia, Hx Myocardial Infarction, Hx Pacemaker/ICD, Hx Rheumatic Fever, Hx Syncope Respiratory History: Reports: Hx Sleep Apnea - does not use CPAP/ refused Denies: Hx Asthma, Hx Chronic Bronchitis, Hx Chronic Obstructive Pulmonary Disease (COPD), Hx Lung Cancer, Hx Pneumonia, Hx Seasonal Allergies GI History: Reports: Hx Gall Bladder Disease - cholecystectomy, Hx Gastroesophageal Reflux Disease - ON MEDS PT STATES CONT TO HAVE SEVERE EPISODES , Hx Hiatal Hernia, Other GI Disorders - DIARRHEA OFTEN Denies: Hx Crohn's Disease, Hx Diverticulosis, Hx Gastrointestinal Bleed, Hx Irritable Bowel, Hx Ulcer, Hx Urosepsis History: Denies: Hx Kidney Infection, Hx Kidney Stones, Hx Renal Disease Musculoskeletal History: Reports: Hx Arthritis - BILAT KNEES AND SHOULDERS Denies: Hx Back Problems, Hx Gout, Hx Orthopedic Injury, Hx Osteoporosis, Hx Tendonitis Sensory History: Reports: Hx Cataracts - BILAT, Hx Contacts or Glasses - GLASSES Denies: Hx Hearing Aid Opthamlomology History: Reports: Hx Cataracts - BILAT, Hx Contacts or Glasses - GLASSES Neurological History: Reports: Other Neuro Impairments/Disorders - CURRENT COMPLAINT IS OF NUMBNESS ON RIGHT SIDE OF HEAD Denies: Hx Dementia, Hx Headaches, Hx Migraine, Hx Nerve Disease, Hx Seizures , Hx Spinal Cord Injury, Hx Transient Ischemic Attacks (TIA) Psychiatric History: Reports: Hx Anxiety, Hx Depression, Hx Panic Disorder Denies: Hx Eating Disorder, Hx Inpatient Treatment, Hx Schizophrenia, Hx Bipolar Disorder, Hx Suicide Attempt, Hx of Violent Episodes Against Others, Hx Substance Abuse - Surgical History Surgery Procedure, Year, and Place: LAPARSCOPIC CHOLECYSTECTOMY 2012 [facility] [place] Hx Anesthesia Reactions: No Infectious Disease History: No Infectious Disease History: Denies: Hx Clostridium Difficile, Hx Hepatitis, Hx Human Immunodeficiency Virus (HIV), Hx of Known/Suspected MRSA, Hx Shingles, Hx Tuberculosis, Hx Known/ Suspected VRE, Hx Known/Suspected VRSA, History Other Infectious Disease, Traveled Outside the [place] in Last 30 Days - Family History Known Family History: Positive: Hypertension, Other - father bladder CA Negative: Cardiac Disease Family History: neg: CAD - Social History Alcohol Use: Rare Alcohol Amount: BEER 5 PER YR Substance Use Type: Reports: None Hx Tobacco Use: Yes - FOR 30 YRS Smoking Status (MU): Former Smoker Review of Systems Negative: Shortness Of Breath Positive: Abdominal Pain - epigastric, Other - denies melena. Negative: Vomiting, Nausea All Other Systems Reviewed And Are Negative: Yes Physical Exam - Summary Physical Exam Summary: Appearance: Well appearing, no pain distress Skin: warm, dry, reflects adequate perfusion, Ecchymosis from recent lovenox Head/face: normal Eyes: EOMI, KARY ENT: normal Neck: supple, non-tender Respiratory: CTA, breath sounds present Cardiovascular: RRR, pulses symmetrical Abdomen: non-tender, soft Bowel Sounds: present Musculoskeletal: strength/ROM intact, Knee replacement scar on R knee Neuro: normal, sensory motor intact, A&Ox3 Triage Information Reviewed: Yes Vital Signs On Initial Exam: Initial Vitals Temp Pulse Resp BP Pulse Ox 97.5 F 68 18 121/58 96 01/11/18 14:51 01/11/18 14:51 01/11/18 14:51 01/11/18 14:51 01/11/18 14:51 Vital Signs Reviewed: Yes Diagnostics - Vital Signs Vital Signs Temp Pulse Resp BP Pulse Ox 01/11/18 14:51 97.5 F 68 18 121/58 96 - Laboratory Lab Statement: Any lab studies that have been ordered have been reviewed, and results considered in the medical decision making process. - EKG 1531 Cardiac Rate: NL - 66 BPM EKG Rhythm: Sinus Rhythm ST Segment: Non-Specific EKG Interpretation: normal axis, no acute findings Re-Evaluation - Re-Evaluation First Eval Re-Evaluation Time: 15:57 Change: Improved Comment: The patient is feeling better. Discussed discharge plan with the patient. Abdominal Pain Fem Course/Dx - Course Course Of Treatment: Agent with history of GERD, hiatal hernia who has exacerbation of those symptoms. EKG negative 2 today. Treated with GI meds with significant improvement. Discharged on same. Follow up primary care physician. - Diagnoses Differential Diagnosis/HQI/PQRI: AMI, Other - GERD, gallbladder disease, gastritis Provider Diagnoses: Epigastric pain, GERD (gastroesophageal reflux disease) Discharge - Sign-Out/Discharge Documenting (check all that apply): Patient Departure - Discharge Plan Condition: Improved Disposition: HOME Prescriptions: Sucralfate [Carafate] 1 gm PO ACHS #60 tablet Patient Education Materials: Diet for Stomach Ulcers and Gastritis (ED), Gastroesophageal Reflux Disease (ED) Referrals: Tolu Hampton MD [Primary Care Provider] - Additional Instructions: Continue your Pepcid and omeprazole. Double the omeprazole for 3 days. Avoid spicy foods, alcohol and any anti-inflammatory medications. Maalox may help. Lying flat may worsen. Return if worse, new symptoms, blood in the stools or vomit, or other concerns. - Billing Disposition and Condition Condition: IMPROVED Disposition: Home - Attestation Statements Document Initiated by Toby: Yes Documenting Scribe: Aurelio Vidal Provider For Whom Toby is Documenting (Include Credential): Anthony Mcdonough MD Scribe Attestation: Aurelio Campbell, scribed for Anthony Mcdonough MD on 01/11/18 at 1703. Scribe Documentation Reviewed: Yes Provider Attestation: The documentation as recorded by the Aurelio montes accurately reflects the service I personally performed and the decisions made by me, Anthony Mcdonough MD
[2018-01-11 16:17] VITALS: BP 121/87
== END 2018-01-11 16:18 | disposition home or self-care (01) ==
LOC: ED 14:48
DX: R10.13 Epigastric pain (principal); K21.9 Gastro-esophageal reflux disease without esophagitis; Z87.891 Personal history of nicotine dependence; Z79.82 Long term (current) use of aspirin; E11.9 Type 2 diabetes mellitus without complications; I10 Essential (primary) hypertension
CPT/HCPCS: 93005; 99283; A9270-GY

== ENCOUNTER 2019-04-20 14:08 | Emergency (ER) | payer MEDICARE ==
[2019-04-20 14:55] VITALS: BP 122/67
--- NOTE | 2019-04-20 16:25 | UC ---
Truncal Trauma HPI - HPI Summary HPI Summary: 73 yo man who fell against the corner of the [facility] yesterday when his dog got underfoot. He has had persistent pain with movement. 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 - History Of Current Complaint Chief Complaint: UCTrauma Stated Complaint: RIB PAIN Time Seen by Provider: 04/20/19 16:23 Hx Obtained From: Patient Onset/Duration: Sudden Onset, Lasting Days - 2 Onset Of Pain: Immediate Severity Initially: Moderate Severity Currently: Moderate Pain Intensity: 5 Mechanism Of Injury: Blunt Trauma Aggravating Factor(s): Movement, Deep Breathing Alleviating factor(s): OTC Medication - acetaminophen gave relief. Associated Signs And Symptoms: Positive: Chest Pain - Allergies/Home Medications Allergies/Adverse Reactions: Allergies Allergy/AdvReac Type Severity Reaction Status Date / Time tetracycline Allergy Hives Verified 04/20/19 14:55 PMH/Surg Hx/FS Hx/Imm Hx Endocrine History: Diabetes Cardiovascular History: Hypertension GI/ History: Gastroesophageal Reflux Neurological History: Other - tremor Psychological History: Anxiety Other History Of: Anticoagulant Therapy - 81 mg aspirin Negative For: HIV, Hepatitis B, Hepatitis C - Surgical History Surgical History: Yes Surgery Procedure, Year, and Place: LAPARSCOPIC CHOLECYSTECTOMY [address] [facility] [place]. right knee replacement - Family History Known Family History: Positive: Hypertension, Other - father bladder [place] Negative: Cardiac Disease Family History: neg: CAD - Social History Occupation: Employed Full-time Lives: Alone Alcohol Use: Rare Alcohol Amount: BEER 5 PER YR Substance Use Type: None Smoking Status (MU): Former Smoker When Did the Patient Quit Smoking/Using Tobacco: quit 35 years ago - Immunization History Most Recent Tetanus Shot: >10 yrs Review of Systems All Other Systems Reviewed And Are Negative: Yes Constitutional: Positive: Negative Skin: Positive: Negative Eyes: Positive: Negative ENT: Positive: Negative Respiratory: Positive: Other - chest pain with deep inspiration. Cardiovascular: Positive: Chest Pain. Negative: Palpitations Gastrointestinal: Positive: Negative Genitourinary: Positive: Negative Motor: Positive: Negative Neurovascular: Positive: Negative Musculoskeletal: Positive: Myalgia Neurological: Positive: Negative Psychological: Positive: Negative Is Patient Immunocompromised?: No Physical Exam Triage Information Reviewed: Yes Appearance: Well-Appearing, Pain Distress - mild to moderate, Obese Vital Signs: Initial Vital Signs Temp 97.5 F 04/20/19 14:52 Pulse 67 04/20/19 14:52 Resp 16 04/20/19 14:52 BP 122/67 04/20/19 14:52 Pulse Ox 97 04/20/19 14:52 ENT: Positive: Normal ENT inspection, Pharynx normal Neck: Positive: Supple, Nontender, No Lymphadenopathy Respiratory Exam: Other - tenderness mid clavicular line right chest, ribs 7-8-9 Respiratory: Positive: Lungs clear, Normal breath sounds, No respiratory distress Cardiovascular: Positive: RRR, No Murmur Musculoskeletal Exam: Normal Musculoskeletal: Positive: Strength Intact, ROM Intact Neurological Exam: Normal Neurological: Positive: Alert Psychological Exam: Normal Skin Exam: Normal - No ecchymosis seen Diagnostics - Radiology No standard instances Radiology Interpretation Completed By: Radiologist Summary of Radiographic Findings: No fracture of the ribs is seen, no pneumothorax seen per Dr. Lamar. Truncal Trauma Course/Dx - Course Course Of Treatment: Continue analgesics for pain control, along with modification of activity due to pain. Discussed need to ensure deep breaths. - Differential Dx/Diagnosis Differential Diagnosis/HQI/PQRI: Chest Wall Contusion, Rib Fracture Provider Diagnosis: Contusion of right chest wall Discharge ED - Sign-Out/Discharge Documenting (check all that apply): Patient Departure All imaging exams completed and their final reports reviewed: Yes - Discharge Plan Condition: Stable Disposition: HOME Patient Education Materials: Rib Contusion (ED) Forms: *Work Release Referrals: Gregorio Jurado MD [Primary Care Provider] - Additional Instructions: Continue use of acetaminophen for control of pain, and return for follow up if you have increasing pain or shortness of breath. As discussed, you will avoid heavy lifting for the next week. - Billing Disposition and Condition Condition: STABLE Disposition: Home
== END 2019-04-20 17:28 | disposition home or self-care (01) ==
LOC: UCEAST 14:08
DX: S20.211A Contusion of right front wall of thorax, initial encounter (principal); E11.9 Type 2 diabetes mellitus without complications; I10 Essential (primary) hypertension; Z88.8 Allergy status to other drugs, medicaments and biological substances; Z87.891 Personal history of nicotine dependence; W01.0XXA Fall on same level from slipping, tripping and stumbling without subsequent striking against object, initial encounter; Y92.9 Unspecified place or not applicable
CPT/HCPCS: 99211; G0463